=== PATIENT | female | born 1995 | race African-American/Black ===

== ENCOUNTER 2019-01-13 05:40 | Emergency (ER) | payer OTHER, BC, MEDICAID ==
[~2019-01-13] VITALS: Ht 165.1 cm; Wt 59.0 kg
[2019-01-13] MEDS ORDERED: PROPOFOL 200MG/20ML VIAL IV ONE (06:15)
[2019-01-13] MEDS ORDERED: ONDANSETRON HCL 4MG/2ML INJ IV ONE (06:15)
[2019-01-13] MEDS ORDERED: MORPHINE SULFATE 4 MG/ML CPJ (NOT FOR IM USE) IV ONE (06:15)
[2019-01-13] MEDS ORDERED: KETAMINE HCL 50 MG/ML 10ML IV ONE (06:15)
[2019-01-13 09:13] VITALS: BP 118/69
== END 2019-01-13 09:47 | disposition home or self-care (01) ==
LOC: ER 05:40
DX: M24.412 Recurrent dislocation, left shoulder (principal); Z98.890 Other specified postprocedural states
CPT/HCPCS: 23650; 73020; 73030; 93005; 96374; 96375; 99152; 99285; J2270; J2405; J2704; J3490; Z7610